=== PATIENT | female | born 1990 | race Caucasian/White ===

== ENCOUNTER 2019-02-01 18:08 | Emergency (ER) | payer MEDICAID ==
[~2019-02-01] VITALS: Ht 170.2 cm; Wt 56.0 kg
[2019-02-01 18:13] VITALS: BP 125/80
--- NOTE | 2019-02-01 18:28 | NUR ---
BIB SELF. AAO X4 C/O LT LOWER BACK PAIN X1 WEEK. PAINFUL URINATION AND LOWER ABDOMINAL PAIN TODAY. PT DENIES N/V/D, SOB, FEVER. ABDOMEN NON TENDER TO TOUCH. ER TO EVALUATE PT.
--- NOTE | 2019-02-01 19:18 | NUR ---
RECIEVED REPORT FROM ZINA ROCHA. ASSUMED CARE AT THIS TIME.
[2019-02-01] MEDS ORDERED: KETOROLAC 60 MG/2 ML VIAL IM ONE (19:35)
--- NOTE | 2019-02-01 20:48 | NUR ---
Patient discharged with v/s stable. Written and verbal after care instructions given and explained. Patient alert, oriented and verbalized understanding of instructions. Ambulatory with steady gait. All questions addressed prior to discharge. ID band removed. Patient advised to follow up with PMD. Rx of NORCO, MOTRIN, CIPRO given. Patient educated on indication of medication including possible reaction and side effects. Opportunity to ask questions provided and answered.
[2019-02-01 20:49] VITALS: BP 125/73
== END 2019-02-01 20:49 | disposition home or self-care (01) ==
LOC: MED 18:08
DX: N39.0 Urinary tract infection, site not specified (principal)
CPT/HCPCS: 81002; 81025; 96372; 99283; J1885

== ENCOUNTER 2019-09-29 09:22 | Emergency (ER) | payer MEDICAID ==
[~2019-09-29] VITALS: Ht 165.1 cm; Wt 58.1 kg
[2019-09-29 09:26] VITALS: BP 104/63
--- NOTE | 2019-09-29 09:30 | NUR ---
Patient ambulated to bed 9
--- NOTE | 2019-09-29 09:46 | NUR ---
29YO F, 15 WEEKS , C/O LOW BLOOD PRESSURE AND HEADACHE SINCE YDAY. LOWEST RECORDED TEMP OF 80/45. STATES PAIN OF 8/10, PRESSURE-LIKE IN THE FRONTAL AND TEMPORAL AREAS. DENIES VOMITING, ABDOMINAL PAIN. PT IS AOX4, GCS 15. PERRL 4MM. NO MOTOR WEAKNESS NOTED. PULSES WNL. PT POSITIONED COMFORTABLY IN BED. ERMD MADE AWARE. PMH: KIDNEY STONES MEDS: , B6 LLERGIES: PAGIE, PEACHES
[2019-09-29] MEDS ORDERED: ACETAMINOPHEN EXTRA STRENGTH 500 MG TAB PO ONE (10:00)
[2019-09-29] MEDS ORDERED: METOCLOPRAMIDE 10 MG/2 ML INJ VIAL IM ONE (10:00)
[2019-09-29 10:53] VITALS: BP 106/63
--- NOTE | 2019-09-29 10:53 | NUR ---
PT DENIES PAIN AT THIS TIME. 0/10 PAIN
--- NOTE | 2019-09-29 10:53 | NUR ---
Patient discharged with v/s stable. Written and verbal after care instructions given and explained. Patient alert, oriented and verbalized understanding of instructions. Ambulatory with steady gait. All questions addressed prior to discharge. ID band removed. Patient advised to follow up with PMD. Rx of REGLAN given. Patient educated on indication of medication including possible reaction and side effects. Opportunity to ask questions provided and answered.
== END 2019-09-29 10:53 | disposition home or self-care (01) ==
LOC: MED 09:22
DX: O26.891 Other specified pregnancy related conditions, first trimester (principal); G43.909 Migraine, unspecified, not intractable, without status migrainosus; Z91.018 Allergy to other foods
CPT/HCPCS: 99283; J2765

== ENCOUNTER 2020-03-05 22:13 | Inpatient (IN) | payer MEDICAID ==
[~2020-03-05] VITALS: Ht 167.6 cm; Wt 64.4 kg
[2020-03-05 22:47] VITALS: BP 125/73
[2020-03-05 23:31] LABS: BASOPHILS # (AUTO) 0.1 K/uL (0.00-0.22); EOSINOPHILS % (AUTO) 0.3 % (0.0-4.0); HEMATOCRIT 36.3 % (36-48); HEMOGLOBIN 11.7 g/dL (12.0-16.0); LYMPHOCYTES # (AUTO) 1.5 K/uL (2.5-16.5); LYMPHOCYTES % (AUTO) 21.6 % (20.5-51.1); MEAN CORPUSCULAR HEMOGLOBIN 27 pg (27-31); MEAN CORPUSCULAR HGB CONC 32 g/dL (33-37); MEAN CORPUSCULAR VOLUME 84.8 fL (80-94); MONOCYTES # (AUTO) 0.7 K/uL (0.8-1.0); MONOCYTES % (AUTO) 9.4 % (1.7-9.3); NEUTROPHILS # (AUTO) 4.8 K/uL (1.8-7.7); NEUTROPHILS % (AUTO) 67.7 % (42.2-75.2); PLATELET COUNT (AUTO) 185 K/uL (140-450); RED BLOOD CELL COUNT(AUTO) 4.28 MIL/uL (4.20-5.40); RED CELL DISTRIBUTION WIDTH 14.7 % (11.6-13.7); WHITE BLOOD COUNT (AUTO) 7.1 K/uL (4.8-10.8)
[2020-03-05] MEDS ORDERED: cefTRIAXone 1,000 MG VIAL ONE (23:33)
[2020-03-05 23:56] LABS: APPEARANCE,URINE CLEAR (CLEAR); COLOR,URINE YELLOW (YELLOW)
[2020-03-05 23:57] LABS: BILIRUBIN,URINE NEGATIVE (NEGATIVE); BLOOD, URINE NEGATIVE (NEGATIVE); LEUKOCYTE ESTERASE ,URINE 2+ (NEGATIVE); NITRITE, URINE NEGATIVE (NEGATIVE); PH,URINE 6.5 (5.0-9.0); RBC,URINE 0-5 /HPF (0-5); UGLUCOSE NEGATIVE (NEGATIVE)
[2020-03-06 01:38] LABS: ALBUMIN 2.7 g/dL (3.4-5.0); ANION GAP 17.7 (8-16); CARBON DIOXIDE 20.3 mmol/L (21-32); CREATININE 1.3 mg/dL (0.6-1.3); TOTAL BILIRUBIN 0.6 mg/dL (0.0-1.0)
[2020-03-06] MEDS ORDERED: PNV1TABL5 PO (01:54)
[2020-03-06] MEDS ORDERED: FERR75LI22 PO (01:54)
[2020-03-06] MEDS ORDERED: MORPHINE SULFATE 5 MG/ML VIAL IVP PRN (01:55)
[2020-03-06] MEDS ORDERED: MORPHINE SULFATE 10 MG/ML VIAL ONE (01:57)
[2020-03-06] MEDS ORDERED: PROMETHAZINE 25 MG/ML VIAL ONE (01:58)
--- NOTE | 2020-03-06 09:04 | NUR ---
PATIENT HAS BEEN SCREENED AND CATEGORIZED LOW NUTRITION RISK. PATIENT WILL BE SEEN WITHIN 7 DAYS OF ADMISSION. 03/12/[address]
[2020-03-06] MEDS ORDERED: PANTOPRAZOLE 40 MG INJ VIAL IVP SCH (11:00)
[2020-03-07] MEDS ORDERED: PANTOPRAZOLE 40 MG INJ VIAL IVP SCH (09:00)
[2020-03-07] MEDS ORDERED: PANTOPRAZOLE 40 MG TABEC PO ONE (09:40)
[2020-03-07] MEDS ORDERED: POTASSIUM CHLORIDE 10 MEQ TABER PO PRN (10:45)
[2020-03-07] MEDS ORDERED: MAG SULF 2000 MG/WATER PREMIX 50 ML IV PRN (10:45)
[2020-03-07] MEDS ORDERED: ALBUTEROL HFA MDI 90 MCG/ACTUATION 8 GM INH PRN (10:45)
[2020-03-07] MEDS: NACL 0.9% 1,000 ML IV SCH (12:30)
[2020-03-07] MEDS ORDERED: ENOXAPARIN 60 MG/0.6 ML SYR SUBQ SCH (21:00)
[2020-03-08] MEDS: ZINC SULF 220 MG CAP PO SCH ×3 (00:08→20:58)
[2020-03-08] MEDS ORDERED: MORPHINE SULFATE 10 MG/ML VIAL ONE ×2 (01:55→14:05)
[2020-03-08] MEDS: PROMETHAZINE 25 MG/ML VIAL IVP PRN ×2 (02:00→14:28)
[2020-03-08 06:26] LABS: ALBUMIN 2.1 g/dL (3.4-5.0); CREATININE 1.3 mg/dL (0.6-1.3); TOTAL BILIRUBIN 0.4 mg/dL (0.0-1.0)
[2020-03-08] MEDS ORDERED: AZITHROMYCIN 250 MG TAB PO SCH (09:00)
[2020-03-08] MEDS: VITAMIN D 400 IU TAB PO SCH (09:26)
[2020-03-08] MEDS: ASCORBIC ACID 500 MG TAB PO SCH (09:27)
[2020-03-08] MEDS ORDERED: METHYLERGONOVINE 0.2 MG/ML AMP IM PRN (11:40)
[2020-03-08] MEDS ORDERED: CARBOPROST 250 MCG/ML AMP IM PRN (11:40)
[2020-03-08] MEDS ORDERED: OXYTOCIN 20 UNITS in LACTATED RINGERS 1,000 ML IV SCH (11:40)
[2020-03-08] MEDS ORDERED: LIDOCAINE 2% 1000 MG/50 ML VIAL INJ ONE (11:40)
[2020-03-08] MEDS ORDERED: LIDOCAINE 1% 500 MG/50 ML VIAL ONE (11:47)
[2020-03-08] MEDS ORDERED: OXYTOCIN 20 UNITS/LR PREMIX 1,000 ML IV ONE (11:47)
[2020-03-08] MEDS: NACL 0.9% 1,000 ML IV SCH (14:14)
[2020-03-08 14:18] VITALS: BP 137/69
[2020-03-08] MEDS ORDERED: fentaNYL citrate 0.05 MG/ML VIAL ONE (17:23)
[2020-03-08] MEDS ORDERED: ROPIVACAINE 0.2%/NS PREMIX 200 ML EPI ONE (17:23)
[2020-03-09] MEDS ORDERED: METHYLERGONOVINE 0.2 MG/ML AMP IM PRN (01:10)
[2020-03-09] MEDS ORDERED: bisacodyL 5 MG TABEC PO PRN (01:10)
[2020-03-09] MEDS ORDERED: MEASLES, MUMPS, AND RUBELLA 1 VIAL SQVAC PRN (01:10)
[2020-03-09] MEDS ORDERED: IBUPROFEN 600 MG TAB PO PRN (01:10)
[2020-03-09] MEDS ORDERED: OXYTOCIN 10 UNITS/ML VIAL IM PRN (01:10)
[2020-03-09] MEDS ORDERED: DOCUSATE SODIUM 100 MG GELCAP PO PRN (01:10)
[2020-03-09] MEDS ORDERED: BENZOCAINE/MENTHOL 20%-0.5% 60 GM CAN TP PRN (01:10)
[2020-03-09] MEDS ORDERED: SIMETHICONE 80 MG TAB.CHEW PO PRN (01:10)
[2020-03-09] MEDS: IBUPROFEN 800 MG TAB PO PRN (02:10)
[2020-03-09 06:48] LABS: ANION GAP 13.5 (8-16); CARBON DIOXIDE 20.2 mmol/L (21-32); CREATININE 1.3 mg/dL (0.6-1.3); POTASSIUM 3.7 mmol/L (3.5-5.1); TOTAL BILIRUBIN 0.5 mg/dL (0.0-1.0)
[2020-03-09] MEDS: VITAMIN D 400 IU TAB PO SCH (08:44)
[2020-03-09] MEDS: ZINC SULF 220 MG CAP PO SCH ×2 (08:44→21:05)
[2020-03-09] MEDS: ASCORBIC ACID 500 MG TAB PO SCH (08:45)
[2020-03-09] MEDS: IBUPROFEN 600 MG TAB PO PRN ×2 (12:32→18:03)
[2020-03-10 06:41] LABS: BASOPHILS # (AUTO) 0.1 K/uL (0.00-0.22); BASOPHILS % (AUTO) 0.5 % (0.0-2.0); EOSINOPHILS # (AUTO) 0.1 K/uL (0-0.4); EOSINOPHILS % (AUTO) 0.7 % (0.0-4.0); HEMATOCRIT 34.2 % (36-48); MEAN CORPUSCULAR HEMOGLOBIN 28 pg (27-31); MEAN CORPUSCULAR HGB CONC 32 g/dL (33-37); MEAN CORPUSCULAR VOLUME 87.2 fL (80-94); MONOCYTES # (AUTO) 1.2 K/uL (0.8-1.0); MONOCYTES % (AUTO) 8.7 % (1.7-9.3); NEUTROPHILS # (AUTO) 9.4 K/uL (1.8-7.7); NEUTROPHILS % (AUTO) 68.1 % (42.2-75.2); PLATELET COUNT (AUTO) 190 K/uL (140-450); RED BLOOD CELL COUNT(AUTO) 3.93 MIL/uL (4.20-5.40); RED CELL DISTRIBUTION WIDTH 15.2 % (11.6-13.7); WHITE BLOOD COUNT (AUTO) 13.8 K/uL (4.8-10.8)
[2020-03-10 07:51] LABS: ALBUMIN 2.5 g/dL (3.4-5.0); ANION GAP 14.3 (8-16); CARBON DIOXIDE 23.7 mmol/L (21-32); CREATININE 1.2 mg/dL (0.6-1.3); TOTAL BILIRUBIN 0.3 mg/dL (0.0-1.0)
[2020-03-10 07:52] LABS: MAGNESIUM 2.1 mg/dL (1.8-2.4); PHOSPHORUS 2.7 mg/dL (2.5-4.9)
[2020-03-10] MEDS: ASCORBIC ACID 500 MG TAB PO SCH (09:06)
[2020-03-10] MEDS: VITAMIN D 400 IU TAB PO SCH (09:06)
[2020-03-10] MEDS: ZINC SULF 220 MG CAP PO SCH ×2 (09:07→21:11)
[2020-03-10] MEDS: IBUPROFEN 800 MG TAB PO PRN (09:08)
[2020-03-11 06:32] LABS: BASOPHILS # (AUTO) 0.1 K/uL (0.00-0.22); BASOPHILS % (AUTO) 0.7 % (0.0-2.0); EOSINOPHILS # (AUTO) 0.1 K/uL (0-0.4); HEMATOCRIT 33.3 % (36-48); HEMOGLOBIN 10.9 g/dL (12.0-16.0); LYMPHOCYTES % (AUTO) 19.5 % (20.5-51.1); MEAN CORPUSCULAR HEMOGLOBIN 29 pg (27-31); MEAN CORPUSCULAR HGB CONC 33 g/dL (33-37); MEAN CORPUSCULAR VOLUME 88.5 fL (80-94); MONOCYTES # (AUTO) 0.7 K/uL (0.8-1.0); MONOCYTES % (AUTO) 6.4 % (1.7-9.3); NEUTROPHILS # (AUTO) 7.5 K/uL (1.8-7.7); NEUTROPHILS % (AUTO) 72.4 % (42.2-75.2); PLATELET COUNT (AUTO) 191 K/uL (140-450); RED BLOOD CELL COUNT(AUTO) 3.76 MIL/uL (4.20-5.40); RED CELL DISTRIBUTION WIDTH 15.3 % (11.6-13.7); WHITE BLOOD COUNT (AUTO) 10.3 K/uL (4.8-10.8)
[2020-03-11] MEDS: IBUPROFEN 600 MG TAB PO PRN (06:32)
[2020-03-11 07:21] LABS: PHOSPHORUS 3.1 mg/dL (2.5-4.9)
[2020-03-11 08:41] LABS: ALBUMIN 2.4 g/dL (3.4-5.0); ANION GAP 16.2 (8-16); CARBON DIOXIDE 22.5 mmol/L (21-32); CREATININE 1.1 mg/dL (0.6-1.3); POTASSIUM 3.7 mmol/L (3.5-5.1); TOTAL BILIRUBIN 0.3 mg/dL (0.0-1.0)
--- NOTE | 2020-03-11 09:42 | NUR ---
ADMITTING DX: CONTRACTIONS MED HX: NONE LISTED LABS: (03/11/20) H/H 10.9/33.3 MEDICATIONS: MOTRIN, ZINC SULFATE, DULCOLAX, VITAMIN C, CHOLECALCIFEROL, VENTOLIN, K DUR OTHER PERTINENT DATA -PT IS A 29 Y/O FEMALE FROM HOME PRESENTING WITH COVID-19 INFECTION, R PYELONEPHRITIS, IUP 37.4 WEEKS PER MD NOTES. -HIGH RISK INITIAL NUTRITION SCREEN D/T LENGTH OF STAY >/= 7 WEEKS. -PT H&P, PT ARRIVED TO ED WITH C/O RT FLANK PAIN, NAUSEA, VOMITTING, GOOD MOVEMENT. PT DELIVERED BABY ON 03/09/20. PER PHYSICIAN PROGRESS NOTE, PT WILL BE OBSERVED FOR RHOGAM AB. PT NOTED WITH UTI, 37 WEEKS S/P DELIVERY. 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 -LEONIDAS SCORE: N/A -SKIN: N/A -WOUNDS: N/A -GI: N/A -ABDOMEN: N/A -LAST BM: N/A -BOWEL PATTERN: N/A -BOWEL SOUNDS: N/A -DIET PRIOR TO ADMISSION: REGULAR -CURRENT DIET: REGULAR -PO INTAKES: INTAKES ADEQUATE TO MEET ESTIMATED KCAL AND PRO NEEDS -ANTHROPOMETRICS: HT: 66 INCHES / 56 WT: 64.41 KG/ 142 POUNDS BMI: 22.9 KG/M2, NORMAL IBW: 130 POUNDS / 59 KG %IBW: 109% --ESTIMATED NEEDS ARE BASED ON 64 KG ACTUAL BODY WEIGHT-- CALORIES: [id number] KCAL/DAY (25-30 KCAL/KG FOR ADULT MAINTENANCE) PROTEIN: 51-64 GRAMS PRO/DAY (0.8-1.0 G/KG FOR ADULT MAINTENANCE) FLUID: [id number] ML/DAY (25-30 ML/KG) (03/11/20) RD INITIAL ASSESSMENT COMPLETED NO NUTRITION-RELATED DX AT THIS TIME. RAJANI JIMENEZ MS, RDN M/E: DIETITIAN WILL MONITOR PO INTAKE, NUTRITION-RELATED LABS TRENDING WNL, SKIN INTEGRITY, WEIGHTS, GI FUNCTION. (03/11/20) RD INITIAL ASSESSMENT COMPLETED GOAL: MEET >75% OF ESTIMATED NEEDS VIA PO DIET, WITH ACCEPTABLE TOLERANCE WITHIN 3-5 DAYS. DISCHARGE PLAN: PATIENT SHOULD BE ABLE TO CONTINUE WITH REGULAR UPON DISCHARGE. RAJANI JIMENEZ MS, RDN (03/11/20) RD INITIAL ASSESSMENT COMPLETED PLEASE REFER TO NUTRITION ASSESSMENT UNDER CARE ACTIVITY FOR ESTIMATED NUTRITIONAL NEEDS. RD RECOMMENDATIONS: 1. CONTINUE ON REGULAR DIET TOLERATED. 2. CONSULT RDN PRN. 3. RD WILL F/U 5-7 DAYS; LOW RISK. RAJANI JIMENEZ MS, RDN
== END 2020-03-11 15:30 | disposition home or self-care (01) | DRG 560 ==
LOC: MLD 22:13 → OBSVTOIN 22:13 → MFCC 03-09 03:13
PROVIDERS: ADMIT Obstetrics & Gynecology; ATTEND Obstetrics & Gynecology
PROC: 10E0XZZ Delivery of Products of Conception, External Approach (ICD-10-PCS; principal; 2020-03-08)
PROC: 3E0R3BZ Introduction of Anesthetic Agent into Spinal Canal, Percutaneous Approach (ICD-10-PCS; 2020-03-08)
PROC: 00HU33Z Insertion of Infusion Device into Spinal Canal, Percutaneous Approach (ICD-10-PCS; 2020-03-08)
PROC: 3E0234Z Introduction of Serum, Toxoid and Vaccine into Muscle, Percutaneous Approach (ICD-10-PCS; 2020-03-08)
PROC: 3E0234Z Introduction of Serum, Toxoid and Vaccine into Muscle, Percutaneous Approach (ICD-10-PCS; 2020-03-08)
DX: O75.3 Other infection during labor (principal); U07.1 COVID-19; Z3A.37 37 weeks gestation of pregnancy; Z88.8 Allergy status to other drugs, medicaments and biological substances; A41.9 Sepsis, unspecified organism; O98.52 Other viral diseases complicating childbirth; Z37.0 Single live birth; N12 Tubulo-interstitial nephritis, not specified as acute or chronic; O99.89 Other specified diseases and conditions complicating pregnancy, childbirth and the puerperium; R00.1 Bradycardia, unspecified; O69.81X0 Labor and delivery complicated by cord around neck, without compression, not applicable or unspecified; O25.2 Malnutrition in childbirth; Z23 Encounter for immunization; O26.893 Other specified pregnancy related conditions, third trimester; Z67.91 Unspecified blood type, Rh negative; O60.23X0 Term delivery with preterm labor, third trimester, not applicable or unspecified
CPT/HCPCS: 36415; 51702; 59409; 76770; 80053; 81001; 82550; 83605; 83615; 83735; 84100; 85025; 85379; 85651; 86140; 86592; 86850; 86870; 86886; 86900; 86901; 87086; 87653-90; 93005; C9113; J0696; J1650; J2001; J2270; J2550; J2590; J2795; J3010; J7060; J7120; Q0092; U0003-CS

== ENCOUNTER 2020-04-11 11:58 | Emergency (ER) | payer MEDICAID, SELFPAY ==
[~2020-04-11] VITALS: Ht 165.1 cm; Wt 54.4 kg
[~2020-04-11 11:58] MED LIST: FERR75LI22 PO; PNV1TABL5 PO
[2020-04-11 12:03] VITALS: BP 109/70
--- NOTE | 2020-04-11 12:10 | NUR ---
requested covid-19 test for this pt---pt recently gave 03/23/20 pt denies any symptoms at this time
--- NOTE | 2020-04-11 12:38 | NUR ---
covid-19 swab collected and handed to lab---
[2020-04-11 12:39] VITALS: BP 109/70
--- NOTE | 2020-04-13 10:20 | NUR ---
Covid results received from lab. Results = NEGATIVE. Hard copy requested from lab and placed in infection controls mailbox.
== END 2020-04-11 12:30 | disposition home or self-care (01) ==
LOC: MED 11:58
DX: R43.8 Other disturbances of smell and taste (principal); Z20.828 Contact with and (suspected) exposure to other viral communicable diseases; Z02.89 Encounter for other administrative examinations; Z91.018 Allergy to other foods; Z79.899 Other long term (current) drug therapy
CPT/HCPCS: 99283; U0003

== ENCOUNTER 2022-06-21 17:48 | Emergency (ER) | payer MEDICAID ==
[~2022-06-21] VITALS: Ht 165.1 cm; Wt 65.8 kg
[2022-06-21 18:10] VITALS: BP 105/62
[2022-06-21] MEDS ORDERED: BENZ-300 PO ×2 (19:04→19:05)
[2022-06-21] MEDS ORDERED: FLONAS NS ×2 (19:04→19:05)
[2022-06-21] MEDS ORDERED: IBUP-2213 PO ×2 (19:04→19:05)
[2022-06-21] MEDS ORDERED: PROM118S5 PO ×2 (19:04→19:05)
[2022-06-21 19:52] VITALS: BP 105/62
--- NOTE | 2022-06-21 19:52 | NUR ---
Patient discharged with v/s stable. Written and verbal after care instructions given and explained. Patient alert, oriented and verbalized understanding of instructions. Ambulatory with steady gait. All questions addressed prior to discharge. ID band removed. Patient advised to follow up with PMD. Rx of CEPACOL SORE THROAT LOZENGES, FLUTICASONE PROPRIONATE (FLONASE), IBUPROFEN, PROMETHAZINE/DEXTRMETHORPHAN given. Patient educated on indication of medication including possible reaction and side effects. Opportunity to ask questions provided and answered. DX: UPPER RESPIRATORY INFECTION, ADULT
== END 2022-06-21 19:52 | disposition home or self-care (01) ==
LOC: MED 17:48
DX: J06.9 Acute upper respiratory infection, unspecified (principal)
CPT/HCPCS: 99283

== ENCOUNTER 2023-01-29 07:05 | Emergency (ER) | payer MEDICAID ==
[~2023-01-29] VITALS: Ht 165.1 cm; Wt 73.0 kg
[~2023-01-29 07:05] MED LIST changes: +BENZ-300 PO; +FLONAS NS; +IBUP-2213 PO; +PROM118S5 PO
[2023-01-29 07:30] VITALS: BP 110/70; PULSE 71; RESP 20; TEMP 97.7; O2SAT 100
--- NOTE | 2023-01-29 07:32 | NUR ---
PT AMBULATED TO BED 11
[2023-01-29] MEDS ORDERED: KETOROLAC 30 MG/ML VIAL IM ONE (08:15)
[2023-01-29] MEDS ORDERED: PROCHLORPERAZINE 10 MG/2 ML VIAL IM ONE (08:15)
[2023-01-29] MEDS ORDERED: KETOROLAC 60 MG/2 ML VIAL IM ONE (08:19)
--- NOTE | 2023-01-29 09:33 | NUR ---
Patient appears to be resting comfortably in bed. Vital Signs within normal limits. Respirations even and unlabored.
[2023-01-29 10:21] VITALS: BP 110/70; PULSE 71; RESP 20; TEMP 97.7; O2SAT 100
--- NOTE | 2023-01-29 10:21 | NUR ---
Patient discharged with v/s stable. Written and verbal after care instructions given and explained. Patient alert, oriented and verbalized understanding of instructions. Ambulatory with steady gait. All questions addressed prior to discharge. ID band removed. Patient advised to follow up with PMD. Rx of COMPAZINE (SENT) given. Patient educated on indication of medication including possible reaction and side effects. Opportunity to ask questions provided and answered.
[2023-01-29] MEDS ORDERED: PROC-87 PO (10:41)
--- NOTE | 2023-01-29 10:49 | NUR ---
Note undone in EDM - 01/29/23 at 1050 by [facility] Patient discharged with v/s stable. Written and verbal after care instructions given and explained. Patient alert, oriented and verbalized understanding of instructions. Ambulatory with steady gait. All questions addressed prior to discharge. ID band removed. Patient advised to follow up with PMD. Rx of COMPAZINE (SENT) given. Patient educated on indication of medication including possible reaction and side effects. Opportunity to ask questions provided and answered.
== END 2023-01-29 10:49 | disposition home or self-care (01) ==
LOC: MED 07:05
DX: G43.909 Migraine, unspecified, not intractable, without status migrainosus (principal); F32.A Depression, unspecified; Z79.899 Other long term (current) drug therapy; Z88.8 Allergy status to other drugs, medicaments and biological substances
CPT/HCPCS: 96372; 99284; J0780; J1885

== ENCOUNTER 2023-11-13 05:45 | Emergency (ER) | payer MEDICAID ==
[~2023-11-13] VITALS: Ht 160 cm; Wt 68.0 kg
[~2023-11-13 05:45] MED LIST changes: +PROC-87 PO
[2023-11-13 05:51] VITALS: BP 112/73; PULSE 92; RESP 20; TEMP 97.6; O2SAT 98
[2023-11-13] MEDS: NACL 0.9% 1,000 ML IV ONE (06:29)
[2023-11-13] MEDS: diphenhydrAMINE 50 MG/ML VIAL IVP ONE (06:39)
[2023-11-13] MEDS: PROCHLORPERAZINE 10 MG/2 ML VIAL IVP ONE (06:40)
[2023-11-13] MEDS: KETOROLAC 30 MG/ML VIAL IVP ONE (06:40)
[2023-11-13 07:48] VITALS: BP 134/76; PULSE 84; RESP 20; TEMP 98; O2SAT 98
== END 2023-11-13 07:49 | disposition home or self-care (01) ==
LOC: MED 05:45
DX: G43.909 Migraine, unspecified, not intractable, without status migrainosus (principal); Z79.899 Other long term (current) drug therapy; Z91.018 Allergy to other foods
CPT/HCPCS: 81002; 81025; 96361; 96374; 96375; 99284; J0780; J1200; J1885; J7030